=== PATIENT | male | born 1945 | race Caucasian/White ===

== ENCOUNTER → 2016-07-21 | Outpatient (CLI) | payer OTHER, MEDICARE ==
[2016-01-15 14:45] VITALS: BP 158/72; PULSE 42
[~2016-07-21] MED LIST: ASPI81TA28 PO; CALC0.2510 PO; CHOL1CAP57 PO; FRRS300 PO; LISI-725 PO; MULT-190 PO; POTA10CA28 PO; POTA1TAB97 PO; ROSU20TA PO; magic mouth wash PO
[2016-07-21 13:43] VITALS: BP 175/67; PULSE 44; TEMP 36.5; O2SAT 100
--- NOTE | 2016-07-21 15:19 | Radiation Oncology Procedure ---
Radiation Oncology Procedure Date of Procedure Jul 21, 2016. Procedure Nasopharyngolaryngoscopy Pre & Post Diagnosis Pre Procedure Diagnosis: Post-treatment surveillance Post Procedure Diagnosis: Post-treatment surveillance Procedure Note Consent Obtained: Verbal Procedure Time Out: side/site verified, patient ID confirmed, appropriate equipment obtained Performed By: Dr. Rolando Parmar M.D. [employer] Supervisor(s): ANTWON You Medication(s): Afrin/Topical Lidocaine Clinical Focus of Exam: nasal cavity and sinuses, nasopharynx, oropharynx Findings: Normal nasal cavity & sinuses, Normal nasopharynx (Defect noted in the nasopharynx/soft palate region. Post radiation chagnes noted. ) Estimated Blood Loss: none Specimens: none Complications: none Time Spent: 15 minutes
--- NOTE | 2016-07-21 15:53 | Radiation Oncology Follow-Up ---
Radiation Oncology Follow-Up Date of Visit Jul 21, 2016. (Mayra Mercado PA-C) Reason For Visit Follow-up and NPL examination. (Mayra Mercado PA-C) Radiation Completion Date 08/13/15 (Mayra Mercado PA-C) Diagnosis (1) Cancer of soft palate Status: Resolved Onset Date: 05/02/2015 Location: oral pharynx, soft palate/uvula Histology Subtype: squamous cell carcinoma Stage: IV Permanent Comment: DIAGNOSIS: Oropharynx, soft palate/uvula, midline, SCC, p16 status unknown, [id number], stage MALDONADO Status post completion of combined radiation and chemotherapy. Radiation completed 08/13/2015 received 6960 cGy Last Edited By: Mayra Mercado on Aug 28, 2015 10:55 (Mayra Mercado PA-C) History of Present Illness Mr. Pascal is a 71-year-old gentleman who recently presented with a soft palate lesion in the summer 2014. He states he got progressively worsened did have some discomfort with swallowing. He did have a CT scan and [facility] in [place], [place] that apparently was not helpful due to lack of IV contrast ( report unavailable at the time of consultation). He was also seen by local ENT physician who performed a biopsy which was nondiagnostic. The patient was then referred to Dr. Meyers who then performed a biopsy on 05/02/2015 which revealed moderately differentiated squamous cell carcinoma. There was no p16 staining records in the pathology report (pathology being re-reviewed). The patient underwent a PET/CT scan on 05/14/2015 which did reveal a 3.8 cm avid mass in the soft palate and uvula with asymmetric fullness extending along the right tonsil. Also noted was asymmetric widening of the left pterygopalatine fossa with minimal asymmetric increased soft tissue density within the left pterygopalatine foramen. Also noted were FDG avid bilateral retropharyngeal lymph nodes measuring up to 1.1 cm. Also noted is bilateral level II cervical lymph nodes measuring up to 1.4 cm. The PET scan also showed a suspicious left level V cervical lymph node measuring 1 cm. There was no definite evidence of distant metastatic disease. Dr. Meyers felt due to the locally advanced nature of the tumor that the patient would not be a good surgical candidate. He recommended definitive chemoradiation therapy. The patient was seen by Dr. Trinidad at [facility] and the recommendation was for weekly cis-[place] chemotherapy with radiation therapy for 7 weeks. The patient is planning to stay with his daughter and [place] so we are seeing the patient in consultation for radiation therapy. The patient will also meet with Dr. Ojeda. He completed combined radiation and chemotherapy. Radiation completed 2015 received [id number] (Mayra Mercado PA-C) Interim History He is been doing well over the past 9 months. He denies any difficulty with aspiration or choking. He has dentures with a prosthesis that prevents aspirations of fluid. He does at times have water, into the right nostril. He has some dryness of the mouth. He stated that drinking water will help relieve the dryness for up to 4 hours. He does not require any prescriptive or over-the -counter medications to help with xerostomia. He denies dysphagia. His appetite is good. He has had approximately 18 pound weight gain since the end of radiation and chemotherapy. He has had a follow-up visit in [place] 06/11. At that time an MRI was obtained. This showed a stable enhancement pattern and morphology of the soft palate and its adjacent soft tissues. Findings were favored to represent posttreatment changes. (Mayra Mercado PA-C) Allergies Coded Allergies: NO KNOWN DRUG ALLERGIES (Verified Allergy, Unknown, ., 10/06/15) Home Medications Scheduled Calcitriol (Rocaltrol Cap), 1 CAP PO Q2D Cholecalciferol (Vitamin D3), 1 CAP PO QAM Ferrous Sulfate (Ferrous Sulfate), 1 TAB PO QAM Lisinopril (Zestril), 20 MG PO QAM Ocuvite Preservision (Ocuvite Preservision), 1 TAB PO BID Potassium Chloride (Micro-K Ext Rel), 20 MEQ PO BID Rosuvastatin Calcium (Crestor), 20 MG PO HS Review of Systems Gastrointestinal: Symptoms: WNL GI Comments: Takes nutritional supplements as instructed to by Dr. Ojeda; Oral: Symptoms: No Problems Other Oral Symptoms: Spicy foods burn insides of cheeks;Trouble swallowing bread -dry; Respiratory: Symptoms: WNL Respiratory Comments: Blows nose "constantly";increased phlegm; Urinary: Symptoms: WNL Comments: nocturia 2 - 3 times Skin: Symptoms: No Problems (Mayra Mercado PA-C) Physical Exam Vital Signs Date Time Temp Pulse Resp B/P Pulse Ox O2 Delivery O2 Flow Rate FiO2 07/21/16 13:43 36.5 44 12 175/67 100 Pain: Side: Bilateral Patient Pain Scale: 0 - 10 Initial Pain Intensity: 0.0 Fatigue: None General Appearance: no apparent distress Eyes: normal inspection, EOMI ENT: normal ENT inspection, hearing grossly normal, + pertinent finding (there is mild telangiectasia noted on the soft palate. There are no visible or palpable lesions of the palate. There are no visible lesions of the tongue, buccal mucosa and floor the mouth. NPL examination performed by Dr. Parmar. Please see the separate procedure document.) Neck: supple, no adenopathy, thyroid normal Respiratory/Chest: lungs clear, no respiratory distress, no accessory muscle use Cardiovascular: regular rate, rhythm, no gallop, no murmur Abdomen: non tender, soft Extremities: no pedal edema Neurologic/Psychiatric: no motor/sensory deficits, alert, normal mood/affect Skin: warm/dry Lymphatic: no adenopathy (Mayra Mercado PA-C) Laboratory Studies Test 06/10/16 11:32 White Blood Count 5.62 K/uL (4.8-10.8) Red Blood Count 4.31 M/uL (4.7-6.1) Hemoglobin 12.7 g/dL (14.0-18.0) Hematocrit 38.2 % (42-52) Mean Corpuscular Volume 88.6 fL (80-100) Mean Corpuscular Hemoglobin 29.5 pg (25-34) Mean Corpuscular Hemoglobin Concent 33.2 g/dl (32-36) Platelet Count 112 K/uL (130-400) Mean Platelet Volume 10.7 fL (7.4-10.4) Neutrophils (%) (Auto) 74.6 % Lymphocytes (%) (Auto) 16.2 % Monocytes (%) (Auto) 7.1 % Eosinophils (%) (Auto) 1.4 % Basophils (%) (Auto) 0.5 % Neutrophils # (Auto) 4.19 K/uL (1.4-6.5) Lymphocytes # (Auto) 0.91 K/uL (1.2-3.4) Monocytes # (Auto) 0.40 K/uL (0.11-0.59) Eosinophils # (Auto) 0.08 K/uL (0-0.5) Basophils # (Auto) 0.03 K/uL (0-0.2) RDW Standard Deviation 45.1 fL (36.4-46.3) RDW Coefficient of Variation 13.8 % (11.5-14.5) Immature Granulocyte % (Auto) 0.2 % Immature Granulocyte # (Auto) 0.01 K/uL (0.00-0.02) Sodium Level 143 mmol/L (136-145) Potassium Level 4.0 mmol/L (3.5-5.1) Chloride Level 111 mmol/L (98-107) Carbon Dioxide Level 27 mmol/L (21-32) Anion Gap 5.0 mmol/L (3-11) Blood Urea Nitrogen 20 mg/dl (7-18) Creatinine 1.30 mg/dl (0.60-1.40) Est Creatinine Clear Calc Drug Dose 42.4 ml/min Estimated GFR () 63.2 Estimated GFR (Non- 54.5 BUN/Creatinine Ratio 15.5 (10-20) Random Glucose 91 mg/dl (70-99) Calcium Level 8.8 mg/dl (8.5-10.1) Total Bilirubin 0.4 mg/dl (0.2-1) Aspartate Amino Transferase (AST) 21 U/L (15-37) Alanine Aminotransferase (ALT) 20 U/L (12-78) Alkaline Phosphatase 110 U/L (45-117) Lactate Dehydrogenase 151 U/L (87-241) Total Protein 6.9 gm/dl (6.4-8.2) Albumin 3.9 gm/dl (3.4-5.0) Globulin 3.0 gm/dl (2.5-4.0) Albumin/Globulin Ratio 1.3 (0.9-2) Thyroid Stimulating Hormone (TSH) 2.700 uIu/ml (0.300-4.500) (Mayra Mercado PA-C) Additional Studies MRI performed in [place] 06/11/2016. Results were reviewed above. (Mayra Mercado PA-C) Assessment & Plan Plan: Continue regular follow-up with ENT as well as Dr. Ojeda and his PCP. We asked him to return to our office in 6 months. He may call if he has any questions or concerns in the interim. Recheck scanning per medical oncology and ENT. (Mayra Mercado PA-C) I agree with note created by Mayra Mercado PA-C. I reviewed the patient's chart and information with her. I have examined and evaluated the patient. I reviewed relevant clinical information and answered the patient's and/or family' s questions. (Veeral. Parmar MD) Total Time In Follow-Up We spent 30 minutes speaking to the patient and performing examination. I spent 15 minutes reviewing information and completing this note. (Mayra Mercado PA-C) I spent 20 minutes examining and counseling the patient. I performed a NPL procedure as well which is documented in a separate procedure note. (Veeral. Parmar MD) Copy To Mynor Sarmiento M.D.; Chuck Ojeda D.OMadison; Shahnaz Meyers M.D.
== END | disposition home or self-care (01) ==
LOC: C.ONC 13:32
PROVIDERS: ATTEND Radiology Radiation Oncology
DX: Z08 Encounter for follow-up examination after completed treatment for malignant neoplasm (principal); Z92.3 Personal history of irradiation; Z85.819 Personal history of malignant neoplasm of unspecified site of lip, oral cavity, and pharynx

== ENCOUNTER → 2017-02-03 | Outpatient (CLI) | payer OTHER, MEDICARE ==
[2016-01-15 14:45] VITALS: BP 158/72; PULSE 42
[~2017-02-03] MED LIST changes: -POTA1TAB97 PO; -magic mouth wash PO
[2017-02-03 13:17] VITALS: BP 161/87; PULSE 80; TEMP 36.7; O2SAT 97
--- NOTE | 2017-02-03 14:28 | Radiation Oncology Follow-Up ---
Radiation Oncology Follow-Up Date of Visit Feb 03, 2017. Reason For Visit 6 month follow-up Radiation Completion Date 08/13/16 Diagnosis (1) Cancer of soft palate Status: Resolved Onset Date: 05/02/2015 Location: oral pharynx, soft palate/uvula Histology Subtype: squamous cell carcinoma Stage: IV Permanent Comment: DIAGNOSIS: Oropharynx, soft palate/uvula, midline, SCC, p16 status unknown, [id number], stage MALDONADO Status post completion of combined radiation and chemotherapy. Radiation completed 08/13/2015 received 6960 cGy Last Edited By: Mayra Mercado on Aug 28, 2015 10:55 History of Present Illness Mr. Pascal is a 71-year-old gentleman who recently presented with a soft palate lesion in the summer 2014. He states he got progressively worsened did have some discomfort with swallowing. He did have a CT scan and [facility] in [place], [place] that apparently was not helpful due to lack of IV contrast ( report unavailable at the time of consultation). He was also seen by local ENT physician who performed a biopsy which was nondiagnostic. The patient was then referred to Dr. Meyers who then performed a biopsy on 05/02/2015 which revealed moderately differentiated squamous cell carcinoma. There was no p16 staining records in the pathology report (pathology being re-reviewed). The patient underwent a PET/CT scan on 05/14/2015 which did reveal a 3.8 cm avid mass in the soft palate and uvula with asymmetric fullness extending along the right tonsil. Also noted was asymmetric widening of the left pterygopalatine fossa with minimal asymmetric increased soft tissue density within the left pterygopalatine foramen. Also noted were FDG avid bilateral retropharyngeal lymph nodes measuring up to 1.1 cm. Also noted is bilateral level II cervical lymph nodes measuring up to 1.4 cm. The PET scan also showed a suspicious left level V cervical lymph node measuring 1 cm. There was no definite evidence of distant metastatic disease. Dr. Meyers felt due to the locally advanced nature of the tumor that the patient would not be a good surgical candidate. He recommended definitive chemoradiation therapy. The patient was seen by Dr. Trinidad at [facility] and the recommendation was for weekly cis-[place] chemotherapy with radiation therapy for 7 weeks. The patient is planning to stay with his daughter and [place], [place] so we are seeing the patient in consultation for radiation therapy. The patient will also meet with Dr. Ojeda. He completed combined radiation and chemotherapy. Radiation completed 2015 received [id number] Interim History He's been doing well over the past 6 months. The xerostomia has steadily improved. His appetite is good and weight is stable. He has not had any further weight loss. He does note that he has difficulty with eating spicy foods. This causes a burning sensation in the top part of the mouth and throat. He therefore avoids spicy foods. There is no pain on swallowing. He has noticed no masses of the neck. [facility] is [facility] closely at [facility] [place]. He sees the ENT specialist as well as dentist which follows the special dentures/prosthetic that was made for him. With the use of the prosthetic he has no problems with choking. His most recent visit with the ENT specialist was 2 weeks ago. He was told there was no signs of any recurrence. He is followed by medical oncology and has recheck laboratory studies. These have been stable. Through their office a recheck thyroid function study was performed and is normal. Allergies Coded Allergies: NO KNOWN DRUG ALLERGIES (Verified Allergy, Unknown, ., 10/06/15) Home Medications Scheduled Aspirin (Aspirin Ec), 81 MG PO DAILY Calcitriol (Rocaltrol Cap), 1 CAP PO HS Cholecalciferol (Vitamin D3), 1 CAP PO QAM Ferrous Sulfate (Ferrous Sulfate), 1 TAB PO QAM Lisinopril (Zestril), 20 MG PO QAM Ocuvite Preservision (Ocuvite Preservision), 1 TAB PO BID Rosuvastatin Calcium (Crestor), 20 MG PO HS Review of Systems Gastrointestinal: Symptoms: WNL GI Comments: Takes nutritional supplements as instructed to by Dr. Ojeda; Oral: Symptoms: No Problems Other Oral Symptoms: Spicy foods dia mouth, and cuts food small Respiratory: Symptoms: WNL Respiratory Comments: Blows nose "constantly";increased phlegm; Other Respiratory: Prosthesis makes patient cough at times Urinary: Symptoms: WNL Comments: nocturia 2 - 3 times Skin: Symptoms: No Problems Physical Exam Vital Signs Date Time Temp Pulse Resp B/P (MAP) Pulse Ox O2 Delivery O2 Flow Rate FiO2 02/03/17 13:17 36.7 80 16 161/87 97 Pain: Side: Bilateral Patient Pain Scale: 0 - 10 Initial Pain Intensity: 0.0 Fatigue: None General Appearance: no apparent distress Eyes: normal inspection, EOMI ENT: + pertinent finding (his uvula is absent with a defect in the soft palate area and there are no visible or palpable lesions of the soft palate. There are no lesions of the posterior pharynx. There is some dry mucous. There are no ulcerations. There is telangiectasia on the soft palate.) Neck: no adenopathy, thyroid normal Respiratory/Chest: lungs clear, no respiratory distress, no accessory muscle use Cardiovascular: regular rate, rhythm, no gallop, no murmur Extremities: no pedal edema Neurologic/Psychiatric: no motor/sensory deficits, alert, normal mood/affect Skin: warm/dry Additional Exam Notes: We obtained permission to proceed with a nasopharyngolaryngoscopy. We first apply afrin/lidocaine combination spray to the nares for local anesthesia. The scope was then inserted into the nostril. The nasal cavity and nasopharynx were visualized and no abnormalilities were noted. A defect was noted in the soft palate from previous treatment effect. The scope was then advanced into the oropharynx and the base of tongue, epiglottis and vallecula were well visualized with no abnormalities. The scope was further advanced into the larynx and the vocal cords were well visualized. There was no restricted motion of the vocal cords. No lesions or masses were noted. The scope was slowly retracted and the patient tolerated the procedure well. Photos scanned into [employer] for reference. Laboratory Studies Test 01/10/17 08:35 White Blood Count 4.73 K/uL (4.8-10.8) Red Blood Count 4.93 M/uL (4.7-6.1) Hemoglobin 14.1 g/dL (14.0-18.0) Hematocrit 43.2 % (42-52) Mean Corpuscular Volume 87.6 fL (80-100) Mean Corpuscular Hemoglobin 28.6 pg (25-34) Mean Corpuscular Hemoglobin Concent 32.6 g/dl (32-36) Platelet Count 103 K/uL (130-400) Mean Platelet Volume 10.4 fL (7.4-10.4) Neutrophils (%) (Auto) 69.4 % Lymphocytes (%) (Auto) 14.8 % Monocytes (%) (Auto) 13.1 % Eosinophils (%) (Auto) 1.9 % Basophils (%) (Auto) 0.6 % Neutrophils # (Auto) 3.28 K/uL (1.4-6.5) Lymphocytes # (Auto) 0.70 K/uL (1.2-3.4) Monocytes # (Auto) 0.62 K/uL (0.11-0.59) Eosinophils # (Auto) 0.09 K/uL (0-0.5) Basophils # (Auto) 0.03 K/uL (0-0.2) RDW Standard Deviation 46.5 fL (36.4-46.3) RDW Coefficient of Variation 14.4 % (11.5-14.5) Immature Granulocyte % (Auto) 0.2 % Immature Granulocyte # (Auto) 0.01 K/uL (0.00-0.02) Sodium Level 143 mmol/L (136-145) Potassium Level 4.7 mmol/L (3.5-5.1) Chloride Level 109 mmol/L (98-107) Carbon Dioxide Level 28 mmol/L (21-32) Anion Gap 6.0 mmol/L (3-11) Blood Urea Nitrogen 13 mg/dl (7-18) Creatinine 1.60 mg/dl (0.60-1.40) Est Creatinine Clear Calc Drug Dose 34.5 ml/min Estimated GFR () 49.2 Estimated GFR (Non- 42.4 BUN/Creatinine Ratio 8.0 (10-20) Random Glucose 91 mg/dl (70-99) Calcium Level 9.6 mg/dl (8.5-10.1) Total Bilirubin 0.6 mg/dl (0.2-1) Aspartate Amino Transferase (AST) 27 U/L (15-37) Alanine Aminotransferase (ALT) 20 U/L (12-78) Alkaline Phosphatase 91 U/L (45-117) Lactate Dehydrogenase 191 U/L (87-241) Total Protein 6.7 gm/dl (6.4-8.2) Albumin 3.8 gm/dl (3.4-5.0) Globulin 2.9 gm/dl (2.5-4.0) Albumin/Globulin Ratio 1.3 (0.9-2) Thyroid Stimulating Hormone (TSH) 2.080 uIu/ml (0.300-4.500) Assessment & Plan Plan: Patient was seen and examined by Dr. Parmar. NPL examination completed. See his dictated note. Continue regular follow-up with ENT at the [facility] in [place]. He continues follow-up with Dr. Ojeda. He had recheck laboratory studies through Dr. Ojeda's office recheck scanning per ENT. These have been performed at the [facility] in [place]. We asked him to return to our office in 6 months. He may call if he has any questions or concerns in the interim. ADDENDUM: I agree with note created by Mayra Mercado PA-C. I reviewed the patient's chart and information with her. I have examined and evaluated the patient. I reviewed relevant clinical information and answered the patient's and /or family's questions. ACADEMIC AFFAIRS ASSISTANT Total Time In Follow-Up We spent 25 minutes speaking to the patient performing examination. I spent 15 minutes reviewing information and completing this note. AK I spent 25 minutes examining and counseling the patient. ACADEMIC AFFAIRS ASSISTANT Copy To Mynor Sarmiento M.D.; Chuck Ojeda, D.OMadison; Shahnaz Meyers M.D.
== END | disposition home or self-care (01) ==
LOC: C.ONC 13:09
PROVIDERS: ATTEND Physician Assistant Medical
DX: Z08 Encounter for follow-up examination after completed treatment for malignant neoplasm (principal); Z92.3 Personal history of irradiation; Z85.89 Personal history of malignant neoplasm of other organs and systems

== ENCOUNTER → 2017-07-20 | Outpatient (CLI) | payer OTHER, MEDICARE ==
[2016-01-15 14:45] VITALS: BP 158/72; PULSE 42
[~2017-07-20] MED LIST changes: +AMOX500C3 PO; -POTA10CA28 PO
[2017-07-20 13:14] VITALS: BP 185/88; PULSE 80; TEMP 36.4; O2SAT 98
--- NOTE | 2017-07-20 15:39 | Radiation Oncology Follow-Up ---
Radiation Oncology Follow-Up Date of Visit Jul 20, 2017. Reason For Visit 6 month follow up Radiation Completion Date 08/13/16 Diagnosis (1) Cancer of soft palate Status: Resolved Onset Date: 05/02/2015 Histology Subtype: squamous cell carcinoma Stage: IV Permanent Comment: DIAGNOSIS: Oropharynx, soft palate/uvula, midline, SCC, p16 status unknown, [id number], stage MALDONADO Status post completion of combined radiation and chemotherapy. Radiation completed 08/13/2015 received 6960 cGy Last Edited By: Mayra Mercado on Aug 28, 2015 10:55 History of Present Illness Mr. Pascal presented with a soft tissue mass of the soft palate in the summer 2014. This progressively became worse and he had difficulty with swallowing. He was seen at [facility] and had a CT. He was also seen by local ENT physician who performed a biopsy which was nondiagnostic. The patient was then referred to Dr. Meyers who then performed a biopsy on 05/02/2015 which revealed moderately differentiated squamous cell carcinoma. There was no p16 staining records in the pathology report (pathology being re-reviewed). The patient underwent a PET/CT scan on 05/14/2015 which did reveal a 3.8 cm avid mass in the soft palate and uvula with asymmetric fullness extending along the right tonsil. Also noted was asymmetric widening of the left pterygopalatine fossa with minimal asymmetric increased soft tissue density within the left pterygopalatine foramen. Also noted were FDG avid bilateral retropharyngeal lymph nodes measuring up to 1.1 cm. Also noted is bilateral level II cervical lymph nodes measuring up to 1.4 cm. The PET scan also showed a suspicious left level V cervical lymph node measuring 1 cm. There was no definite evidence of distant metastatic disease. Dr. Meyers felt due to the locally advanced nature of the tumor that the patient would not be a good surgical candidate. He recommended definitive chemoradiation therapy. The patient was seen by Dr. Trinidad at [facility] and the recommendation was for weekly cis-[place] chemotherapy with radiation therapy for 7 weeks. The patient is planning to stay with his daughter and [place], [place] so we are seeing the patient in consultation for radiation therapy. The patient will also meet with Dr. Ojeda. He completed combined radiation and chemotherapy. Radiation completed 2015 received [id number] Interim History He's been doing well over the past 6 months. His quality of taste has steadily improved. He does continue to have xerostomia. His appetite is good and his weight has steadily improved. Dr. Ojeda had recommended a milkshake with breakfast supplement powder. He has been taking this daily. He did recently develop a discomfort in his right ear. He was seen and then referred back to ENT. He had an NPL examination. He was felt to have a sinus infection. He is completing a course of antibiotic therapy with amoxicillin. The earache has resolved and he is steadily improving. The NPL examination was last week. He is also followed in [place] on an annual basis currently. Allergies Coded Allergies: NO KNOWN DRUG ALLERGIES (Verified Allergy, Unknown, ., 10/06/15) Home Medications Scheduled Amoxicillin (Amoxil), 1 CAP PO BID Aspirin (Aspirin Ec), 81 MG PO DAILY Calcitriol (Rocaltrol Cap), 1 CAP PO HS Cholecalciferol (Vitamin D3), 1 CAP PO QAM Ferrous Sulfate (Ferrous Sulfate), 1 TAB PO QAM Lisinopril (Zestril), 20 MG PO QAM Ocuvite Preservision (Ocuvite Preservision), 1 TAB PO BID Rosuvastatin Calcium (Crestor), 20 MG PO HS Review of Systems Gastrointestinal: Symptoms: WNL GI Comments: Takes nutritional supplements as instructed to by Dr. Ojeda; Oral: Symptoms: No Problems Other Oral Symptoms: Spicy foods dia mouth, and cuts food small Respiratory: Symptoms: WNL, Dry Cough, Moist Cough Respiratory Comments: Blows nose "constantly";increased phlegm; Other Respiratory: Currently has sinus/head cold - on amoxicillin Urinary: Symptoms: WNL Comments: nocturia 2 - 3 times Skin: Symptoms: No Problems Physical Exam Vital Signs Date Time Temp Pulse Resp B/P (MAP) Pulse Ox O2 Delivery O2 Flow Rate FiO2 07/20/17 13:14 36.4 80 18 185/88 98 Fatigue: None General Appearance: no apparent distress Eyes: normal inspection, EOMI ENT: normal ENT inspection, hearing grossly normal, + pertinent finding ( examination of the oral pharynx reveals no masses. Uvula is absent. Mild xerostomia. No visible lesions of the tongue, floor the mouth, or buccal mucosa. There are no visible lesions of the hard or soft palate.) Neck: no adenopathy, thyroid normal Respiratory/Chest: lungs clear, no respiratory distress, no accessory muscle use Cardiovascular: regular rate, rhythm, no gallop, no murmur Extremities: no pedal edema Neurologic/Psychiatric: no motor/sensory deficits, alert, normal mood/affect Skin: warm/dry Pain Management Patient Reports Pain: No Side: Bilateral Pain Location: None Patient Preferred Pain Scale: 0 - 10 Initial Pain Intensity: 0.0 Pain Management Plan He denies pain therefore requires no pain management. Laboratory Laboratory Results: not applicable Pathology Pathology Results: not applicable Imaging Imaging Studies: not applicable Assessment & Plan Plan: He was also seen and examined by Dr. Parmar. He'll continue regular follow -up with medical oncology, his primary care physician, and ENT. We asked him to return to our office in 1 year. He may call if he has any questions or concerns in the interim. Assessment & Plan (Attending) I agree with note created by Mayra Mercado PA-C. I reviewed the patient's chart and information with her. I have examined and evaluated the patient. I reviewed relevant clinical information and answered the patient's and/or family' s questions. DIRECTOR OF TECHNOLOGY Total Time In Follow-Up I spent 20 minutes speaking to the patient performing examination. I spent 15 minutes reviewing information and completeness note. Total Time (Attending) In Follow-Up I spent 15 minutes examining and counseling the patient. DIRECTOR OF TECHNOLOGY Copy To Jagdish Sarmiento M.D.; Chuck Ojeda D.O.; Shahnaz Meyers M.D.; Susanne Garay M.D.
== END | disposition home or self-care (01) ==
LOC: C.ONC 13:09
PROVIDERS: ATTEND Physician Assistant Medical
DX: Z08 Encounter for follow-up examination after completed treatment for malignant neoplasm (principal); Z92.3 Personal history of irradiation; Z85.818 Personal history of malignant neoplasm of other sites of lip, oral cavity, and pharynx